=== PATIENT | male | born 1950 | race Caucasian/White ===

== ENCOUNTER 2019-06-29 02:51 | Emergency (ER) | payer OTHER, BC ==
[2019-06-29 03:18] VITALS: TEMP 97.8; BMI 27.2
[2019-06-29 03:19] VITALS: BP 159/96; PULSE 67
[2019-06-29] MEDS ORDERED: CIPROFLOXACIN 500 MG TABLET (RESTRICTED TO ID) PO ONE (03:19)
[2019-06-29] MEDS ORDERED: CIPROFLOXACIN 250 MG TABLET (RESTRICTED TO ID) PO ONE (03:22)
--- NOTE | 2019-06-29 03:22 | PDOC ---
History of Present Illness - General Chief Complaint: Urinary Problem Stated Complaint: URINARY RETENTION Time Seen by Provider: 06/29/19 03:15 History Source: Patient Exam Limitations: No Limitations - History of Present Illness Initial Comments: 06/29/19 03:22 This is a 69-year-old male who comes in complaining of urinary retention. Patient said he has had enlarged prostate and has never had urinary retention in the past that required Gramajo catheter. Patient denies any nausea, vomiting, diarrhea, fever, chills, frequency, dysuria or any other complaints. Allergies: as per nursing notes Past Medical History: none Social history: Lives with family. No smoking. No alcohol. No illicit drugs. Surgical history: None General: No fevers or chills, no weakness, no weight loss HEENT: No change in vision. No sore throat,. No ear pain CardioVascular: no chest discomfort. No shortness of breath Respiratory:No cough, or wheezing. Gastrointestinal: no nausea, vomiting, diarrhea or constipation, No rectal bleeding Genitourinary: No dysuria, hematuria, or frequency, retention Musculoskeletal: No joint or muscle pain or swelling Neurologic: No headache, vertigo, dizziness or loss of consciousness Psychiatric: nor depression Skin: No rashes or easy bruising Endocrine: no increased thirst or abnormal weight change Allergic: no skin or latex allergy All other systems reviewed and normal GENERAL: The patient is awake, alert, and fully oriented, in no acute distress. HEAD: Normal with no signs of trauma. EYES: Pupils equal, round and reactive to light, extraocular movements intact, sclera anicteric, conjunctiva clear. EXTREMITIES:atraumatic, Normal range of motion, no edema. NEUROLOGICAL: Normal speech, normal gait. PSYCH: Normal mood, normal affect. SKIN: Warm, Dry, normal turgor, no rashes or lesions noted. Gramajo catheter was placed to drain approximately 500 cc of urine. Urine was sent for urinary analysis and urine culture Patient's Gramajo was placed to a leg bag and patient discharged home. Past History - Past Medical History Allergies/Adverse Reactions: Allergies Allergy/AdvReac Type Severity Reaction Status Date / Time No Known Allergies Allergy Unverified 06/29/19 02:53 Home Medications: Ambulatory Orders Atorvastatin Ca [Lipitor] 20 mg PO HS 06/29/19 Ciprofloxacin HCl [Cipro] 500 mg PO BID #14 tablet 06/29/19 Losartan Potassium 100 mg PO DAILY 06/29/19 Metoprolol Tartrate [Lopressor] 50 mg PO TID 06/29/19 Cardiac Disorders: Yes (PALPITATIONS) COPD: No Disorders: Yes (BPH, ELEVATED PSA) HTN: Yes Hypercholesterolemia: Yes - Psycho Social/Smoking Cessation Hx Smoking History: Never smoked *Physical Exam - Vital Signs Last Vital Signs Temp Pulse Resp BP Pulse Ox 97.8 F 66 20 203/109 H 98 06/29/19 03:13 06/29/19 03:13 06/29/19 03:13 06/29/19 03:13 06/29/19 03:13 Discharge - Discharge Information Problems reviewed: Yes Clinical Impression/Diagnosis: Urinary retention Condition: Stable Disposition: HOME - Admission No - Additional Discharge Information Prescriptions: Ciprofloxacin HCl [Cipro] 500 mg PO BID #14 tablet - Follow up/Referral Referrals: Quinton Wheeler MD [Non Staff, Medical] - ON STAFF,NOT [Primary Care Provider] - - Patient Discharge Instructions Additional Instructions: Leave the Gramajo in place until you see the urologist. Take Cipro 1 tablet twice a day to prevent infection. Follow-up with your urologist on Monday. Return to the emergency department immediately with ANY new, persistent or worsening symptoms. Continue any medications as previously prescribed by your physician. You should follow up with your primary doctor as soon as possible regarding today's emergency department visit. . Please make sure your doctor reviews the results of your emergency evaluation. Thank you for coming to the Emergency Department today for your care. It was a pleasure to see you today. Please note that your evaluation is INCOMPLETE until you follow-up with your doctor. - Post Discharge Activity
== END 2019-06-29 03:35 | disposition home or self-care (01) ==
LOC: FER 02:51
DX: R33.9 Retention of urine, unspecified (principal); N40.0 Benign prostatic hyperplasia without lower urinary tract symptoms; R00.2 Palpitations; I10 Essential (primary) hypertension; E78.00 Pure hypercholesterolemia, unspecified
CPT/HCPCS: 81003; 81015; 87086; 99283-25

== ENCOUNTER 2024-11-07 03:30 | Emergency (ER) | payer OTHER, BC ==
[2024-11-07 03:54] VITALS: BP 147/76; PULSE 73; RESP 18; TEMP 98.2; BMI 27.2
[2024-11-07] MEDS ORDERED: CIPROFLOXACIN 250 MG TABLET (RESTRICTED TO ID) PO ONE (04:01)
[2024-11-07] MEDS: CIPROFLOXACIN 500 MG TABLET (RESTRICTED TO ID) PO ONE (04:08)
== END 2024-11-07 04:15 | disposition home or self-care (01) ==
LOC: FER 03:30
PROC: 0T9B70Z Drainage of Bladder with Drainage Device, Via Natural or Artificial Opening (ICD-10-PCS; principal; 2024-11-07)
DX: R33.9 Retention of urine, unspecified (principal)
CPT/HCPCS: 81003; 81015; 87086; 99283-25